=== PATIENT | male | born 1975 | race Caucasian/White ===

== ENCOUNTER 2017-03-28 07:59 | Emergency (ER) | payer BC, OTHER ==
[2017-03-28] MEDS ORDERED: Ketorolac INJ* 60 MG/2 ML VIAL IM ONE (09:33)
[2017-03-28] MEDS ORDERED: Dexamethasone IV* 4 MG/ML 1 ML (4 MG) IM ONE (09:33)
[2017-03-28] MEDS ORDERED: Orphenadrine Citrate IV* 30 MG/ML 2 ML VIAL IM ONE (09:33)
--- NOTE | 2017-03-28 09:41 | ED ---
Back Pain - HPI Summary HPI Summary: 41 male presents to ED states he strained his back on Saturday evening loading a motorcycle into a truck. now has worse generalized back pain. neck to buttocks Right sided. Has chronic back pain from previous injuries in the past couple of years, multiple rib fractures however no recent trauma. States he lives with chronic back pain in the same area but once or twice a year he worsens this pain with muscle strain. Pain has become unbearable over the past couple of days. Has been taking ibuprofen 800mg and using a heating pad without relief. Has not had any medication today. Denies numbness/tingling, weakness, saddle anesthesia or bladder/bowel incontinence. Pain radiates from neck to buttock on right side, achey sharp and shooting with certain movements. Movement makes pain worse. Frequent changing of positions makes pain better. No other complaints at this time. FROM of upper and lower extremities. No PMHx. Able to bear weight and has normal gait. - History of Current Complaint Chief Complaint: EDBackInjuryPain Stated Complaint: BACK PAIN Time Seen by Provider: 03/28/17 08:23 Hx Obtained From: Patient Onset/Duration: Sudden Onset, Lasting Days, Still Present, Worse Since Onset/Duration: Started Days Ago, Traumatic - injury from lifting motorcycle, Still Present Timing: Constant Back Pain Location: Is Discrete @ - right back side under shoulder blade, radiating neck to buttock Severity Initially: Moderate Severity Currently: Moderate Pain Intensity: 7 Pain Scale Used: 0-10 Numeric Character: Sharp, Aching Aggravating Symptom(s): Movement Alleviating Symptom(s): Rest, Position Associated Signs And Symptoms: Negative: Swelling, Redness, Bruising, Weakness, Numbness, Tingling, Bladder Incontinence, Bowel Incontinence, Pain with Weight Bearing - Risk Factors AAA Risk Factors: Negative TAD Risk Factors: Negative Cauda Equina Risk Factors: Negative Epidural Abscess Risk Factors: Negative - Allergies/Home Medications Allergies/Adverse Reactions: Allergies Allergy/AdvReac Type Severity Reaction Status Date / Time No Known Allergies Allergy Verified 03/28/17 08:07 PMH/Surg Hx/FS Hx/Imm Hx Endocrine/Hematology History: Denies: Hx Diabetes Cardiovascular History: Denies: Hx Hypertension Respiratory History: Reports: Other Respiratory Problems/Disorders - previous penumothorax from fracture ribs Denies: Hx Asthma Musculoskeletal History: Reports: Hx Orthopedic Injury - rib fractures Denies: Hx Arthritis - Surgical History Surgery Procedure, Year, and Place: n/a - Immunization History Immunizations Up to Date: Yes Infectious Disease History: No Infectious Disease History: Denies: Traveled Outside the [place] in Last 30 Days - Family History Known Family History: Positive: None - Social History Alcohol Use: Occasionally Substance Use Type: Reports: None Smoking Status (MU): Never Smoked Tobacco Review of Systems Constitutional: Negative Cardiovascular: Negative Respiratory: Negative Gastrointestinal: Negative Positive: Arthralgia, Myalgia - back pain Skin: Negative Neurological: Negative All Other Systems Reviewed And Are Negative: Yes Physical Exam Triage Information Reviewed: Yes Vital Signs On Initial Exam: Initial Vitals Temp Pulse Resp BP Pulse Ox 97.6 F 60 17 147/98 98 03/28/17 08:05 03/28/17 08:05 03/28/17 08:05 03/28/17 08:05 03/28/17 08:05 Vital Signs Reviewed: Yes Appearance: Positive: Well-Appearing, Well-Nourished, Pain Distress - moderate Skin: Positive: Warm, Skin Color Reflects Adequate Perfusion, Dry, Other - no ecchymosis or edema. Negative: Cold, Numb, Cyanosis @, Pale, Erythema @ Head/Face: Positive: Normal Head/Face Inspection Eyes: Positive: Conjunctiva Clear ENT: Positive: Hearing grossly normal, Pharynx normal Neck: Positive: Supple, Nontender Respiratory/Lung Sounds: Positive: Clear to Auscultation, Breath Sounds Present. Negative: Decreased Breath Sounds, Rales, Rhonchi, Tracheal Deviation , Wheezes Cardiovascular: Positive: Normal, RRR, Pulses are Symmetrical in both Upper and Lower Extremities - 2+ pedal and radial. Negative: Murmur, Rub Abdomen Description: Positive: Nontender, Soft. Negative: Bruit, Pulsatile Mass Bowel Sounds: Positive: Present Musculoskeletal: Positive: Normal, Strength/ROM Intact, Pain @ - with flexion and extension of back and movement of upper right extremity however is able, Other - no obvious deformity, crepitus or step off noted.. Negative: Limited @ , Interruption @, Edema Left, Edema Right Neurological: Positive: Normal, Sensory/Motor Intact - sensation intact and normal, Alert, Oriented to Person Place, Time, CN Intact II-III, Reflexes Intact , NV Bundle Intact Distally, Normal Gait, Facial Symmetry, Speech Normal Psychiatric: Positive: Affect/Mood Appropriate - [place] Coma Scale Coma Scale Total: 15 Diagnostics - Vital Signs Vital Signs Temp Pulse Resp BP Pulse Ox 03/28/17 08:08 97.8 F 60 17 147/98 99 03/28/17 08:05 97.6 F 60 17 147/98 98 - Laboratory Lab Statement: Any lab studies that have been ordered have been reviewed, and results considered in the medical decision making process. - Radiology thoracic Xray Interpretation: No Acute Changes - UNREMARKABLE RADIOGRAPHS OF THE THORACIC SPINE Radiology Interpretation Completed By: Radiologist right rib Xray Interpretation: No Acute Changes - There is no evidence of acute rib fracture. There are probable old posterior right 10th and 11th rib fractures Radiology Interpretation Completed By: Radiologist Re-Evaluation - Re-Evaluation First Eval Re-Evaluation Time: 10:10 Change: Improved - had relief after medication administration Back Pain Course/Dx - Course Course Of Treatment: given norflex, toradol and dexamethasone and had relief. x- rays obtained and negative for acute fracture. continue same medications at home as directed. RICE, heating pad, NSAIDs and follow up. Aware of worsening signs and symptoms to watch out for. Follow up pcp and ortho. - Diagnoses Differential Diagnosis/HQI/PQRI: Positive: Fracture, Strain, Sprain Provider Diagnoses: Strain of mid-back Discharge - Discharge Plan Condition: Stable Disposition: HOME Prescriptions: Cyclobenzaprine TAB* [Flexeril 10 MG TAB*] 10 mg PO BEDTIME #10 tab HYDROcodone/ACETAMIN 5-325 MG* [[place] 5-325 TAB*] 1 tab PO Q4H PRN #15 tab MDD 3 PRN Reason: Pain predniSONE TAB* [Deltasone TAB*] 40 mg PO DAILY #4 tab Patient Education Materials: Thoracic Back Strain (ED) Referrals: Mingo Holcomb MD [Primary Care Provider] - Additional Instructions: Take prescribed medications as directed starting tomorrow. Steroid recommended in morning and muscle relaxer at bedtime. Do not drive while taking narcotics. Take aleve/ibuprofen every 6-8 hours, hydrocodone in between every 4 hours. Rest, heat compresses, and avoid physical activity. Follow up with PCP/ ortho. IF symptoms worsen or do not improve please seek medical attention, as discussed.
--- NOTE | 2017-03-28 09:59 | RAD ---
HISTORY: Pain, injury COMPARISONS: None VIEWS: 3, Frontal and lateral views of the thoracic spine. FINDINGS: ALIGNMENT: The alignment is normal. VERTEBRAL BODIES: The vertebral body heights are normal. The interpedicular distances are normal. JOINTS: Unremarkable. INTERVERTEBRAL DISCS: The intervertebral disc heights are normal. SOFT TISSUE: Unremarkable OTHER: The visualized lungs are clear. IMPRESSION: UNREMARKABLE RADIOGRAPHS OF THE THORACIC SPINE
--- NOTE | 2017-03-28 10:00 | RAD ---
INDICATION: Right rib pain COMPARISON: None TECHNIQUE: Multiple views of the ribs were obtained. FINDINGS: Bones: There is no evidence of acute rib fracture. There are probable old posterior right 10th and 11th rib fractures LUNGS: The lungs are clear. There is no pneumothorax. Pleural spaces: There is no evidence of hemothorax. Other: None IMPRESSION: NO ACUTE RIB FRACTURE.
[2017-03-28 10:37] VITALS: BP 151/90
== END 2017-03-28 10:38 | disposition home or self-care (01) ==
LOC: ED 07:59
DX: S29.012A Strain of muscle and tendon of back wall of thorax, initial encounter (principal); M54.9 Dorsalgia, unspecified; X50.9XXA Other and unspecified overexertion or strenuous movements or postures, initial encounter; Y93.9 Activity, unspecified; Y92.9 Unspecified place or not applicable
CPT/HCPCS: 72070; 99282; J1100; J1885; J2360

== ENCOUNTER 2017-07-10 08:37 | Emergency (ER) | payer BC ==
[2017-07-10 08:44] VITALS: BP 143/97
[2017-07-10] MEDS ORDERED: Albuterol/Ipratropium NEB.SOL* Albuterol 2.5 MG/Ipratropium 0.5 MG 3 ML INH ONE (08:59)
[2017-07-10] MEDS ORDERED: oxyCODONE/Acetamin 5/325 MG* TAB PO ONE (09:01)
[2017-07-10] MEDS ORDERED: Ketorolac INJ* 60 MG/2 ML VIAL IM ONE (09:01)
--- NOTE | 2017-07-10 09:28 | RAD ---
INDICATION: Chest pain and cough. COMPARISON: There are no prior studies available for comparison. TECHNIQUE: A portable view of the chest was obtained. FINDINGS: Cardiac and mediastinal contours appear to be within normal limits. The lungs are clear. No pleural effusion is seen. IMPRESSION: NO EVIDENCE FOR ACUTE DISEASE.
[2017-07-10] MEDS ORDERED: Albuterol HFA INHALER* 8 gm MDI INH PRN (09:48)
--- NOTE | 2017-07-10 09:59 | ED ---
Ceferino Murillo Benjamin, scribed for Carson Booker MD on 07/10/17 at 0910 . Back Pain - HPI Summary HPI Summary: 41yo male who has been having sinus congestion and cough for a week, states that yesterday night, pt started having back and neck muscle aches after coughing. Pt states that he thinks he might have pulled a muscle. Deep breathing hurts and he reports difficulty breathing due to back pain. Bending his neck down also triggers the pain. - History of Current Complaint Chief Complaint: EDNeckComplaint Stated Complaint: HEAD COLD,SHOULDER PAIN Hx Obtained From: Patient Onset/Duration: Sudden Onset, Lasting Days - 1 day, Still Present Onset/Duration: Started Weeks Ago - 6 days ago, Still Present, Worse Since - 1 day ago Timing: Constant Back Pain Location: Is Discrete @ - neck and upper back Severity Initially: Moderate Severity Currently: Moderate Pain Intensity: 6 Pain Scale Used: 0-10 Numeric Character: Spasmodic, Stiffness Aggravating Symptom(s): Bending - bending neck down Alleviating Symptom(s): Rest Associated Signs And Symptoms: Positive: Negative - Allergies/Home Medications Allergies/Adverse Reactions: Allergies Allergy/AdvReac Type Severity Reaction Status Date / Time No Known Allergies Allergy Verified 03/28/17 08:07 PMH/Surg Hx/FS Hx/Imm Hx Endocrine/Hematology History: Denies: Hx Diabetes Cardiovascular History: Denies: Hx Hypertension Respiratory History: Reports: Other Respiratory Problems/Disorders - previous penumothorax from fracture ribs Denies: Hx Asthma Musculoskeletal History: Reports: Hx Orthopedic Injury - rib fractures Denies: Hx Arthritis - Surgical History Surgery Procedure, Year, and Place: n/a Infectious Disease History: No Infectious Disease History: Denies: Traveled Outside the [place] in Last 30 Days - Family History Known Family History: Negative: Cardiac Disease, Respiratory Disease, Blood Disorder - Social History Alcohol Use: Occasionally Substance Use Type: Reports: None Smoking Status (MU): Current Some Day Smoker Review of Systems Constitutional: Negative Eyes: Negative ENT: Negative Cardiovascular: Negative Positive: Cough Gastrointestinal: Negative Genitourinary: Negative Positive: Myalgia - back and neck pain. Skin: Negative Neurological: Negative Psychological: Normal All Other Systems Reviewed And Are Negative: Yes Physical Exam Triage Information Reviewed: Yes Vital Signs On Initial Exam: Initial Vitals Temp Pulse Resp BP Pulse Ox 97.5 F 69 18 143/97 100 11/29/17 08:41 07/10/17 08:41 07/10/17 08:41 07/10/17 08:41 07/10/17 08:41 Vital Signs Reviewed: Yes - [place] Coma Scale Coma Scale Total: 15 Diagnostics - Vital Signs Vital Signs Temp Pulse Resp BP Pulse Ox 07/10/17 08:41 97.5 F 69 18 143/97 100 - Laboratory Lab Statement: Any lab studies that have been ordered have been reviewed, and results considered in the medical decision making process. - Radiology CXR Xray Interpretation: No Acute Changes Radiology Interpretation Completed By: Radiologist - ED physician has reviewed this radiology report and agrees. Re-Evaluation - Re-Evaluation First Eval Re-Evaluation Time: 09:47 Comment: Pt states feeling better now. Reviewed negative CXR result, and explained discharge instructions. Back Pain Course/Dx - Course Course Of Treatment: 41yo male who has been having sinus congestion and cough for a week, states that yesterday night, pt started having back and neck muscle aches after coughing. Pt states that he thinks he might have pulled a muscle. Deep breathing hurts and he reports difficulty breathing due to back pain. Bending his neck down also triggers the pain. CXR is negative and O2 Sat is 100 %. Pt's chest pain is most likely musculoskeletal, due to cough. - Diagnoses Provider Diagnoses: Chest wall pain, Viral syndrome Discharge - Discharge Plan Condition: Stable Disposition: HOME Prescriptions: Ibuprofen TAB* [Motrin TAB* 800 MG] 800 mg PO Q6H PRN #30 tab PRN Reason: Pain oxyCODONE/Acetamin 5/325 MG* [Percocet 5/325 TAB*] 1 tab PO Q6H PRN #10 tab MDD 4 PRN Reason: Pain - Chest Patient Education Materials: Viral Syndrome (ED), Chest Wall Pain (ED) Referrals: Mingo Holcomb MD [Primary Care Provider] - Additional Instructions: RETURN TO EMERGENCY DEPARTMENT FOR ANY NEW OR WORSENING SYMPTOMS The documentation as recorded by the Ceferino hoff Benjamin accurately reflects the service I personally performed and the decisions made by me, Carson Booker MD.
== END 2017-07-10 10:28 | disposition home or self-care (01) ==
LOC: ED 08:37
DX: R07.89 Other chest pain (principal); B34.9 Viral infection, unspecified; R05 Cough; Z72.0 Tobacco use
CPT/HCPCS: 71010; 94640; 96372; 99282; A9270-GY; J1885